=== PATIENT | male | born 1945 | race Caucasian/White ===

== ENCOUNTER 2025-09-04 18:35 | Inpatient (IN) | payer OTHER ==
[2025-09-04] VITALS (25 sets, daily range): BP systolic 51–123; BP diastolic 37–77
[~2025-09-04] VITALS: Ht 182.9 cm; Wt 108.0 kg
[2025-09-04] MEDS ORDERED: Lidocaine 2000 MG Premix 250 ML IV SCH (18:45)
[2025-09-04 18:52] LABS: Hematocrit 46.5 % (37.0-53.0); Hemoglobin 14.5 g/dL (13.5-17.5); Mean Corpuscular HGB Conc 31.2 g/dL (31.5-36.5); Mean Corpuscular Volume 104 fL (80-100); NRBC ABSOLUTE 0.04 K/mm3 (0.00-0.02); NRBC Auto 0.4 /100 WBC (0.0-0.2); Platelet Count 144 K/mm3 (150-400); RDW Coefficient Variation 13.2 % (11.7-14.2); RDW Standard Deviation 50.5 fL (35.1-46.3)
[2025-09-04] MEDS ORDERED: CefTRIAXone Sodium 1,000 MG in NS 50 ML IV ONE (19:10)
[2025-09-04 19:12] LABS: BAND PERCENT MAN 1 % (0-8); BASOPHILS ABSOLUTE MAN 0.09 K/mm3 (0.00-0.23); BASOPHILS PERCENT MAN 1 % (0-2); EOSINOPHILS ABSOLUTE MAN 0.27 K/mm3 (0.00-0.68); EOSINOPHILS PERCENT MAN 3 % (0-6); LYMPHOCYTES ABSOLUTE MAN 4.59 K/mm3 (0.84-5.20); LYMPHOCYTES PERCENT MAN 51 % (21-46); METAMYELOCYTE ABSOLUTE MAN 0.18 K/mm3 (0.00-0.00); METAMYELOCYTE PERCENT MAN 2 % (0-0); MONOCYTES ABSOLUTE MAN 0.27 K/mm3 (0.16-1.47); MONOCYTES PERCENT MAN 3 % (4-13); MYELOCYTE ABSOLUTE MAN 0.36 K/mm3 (0.00-0.00); MYELOCYTE PERCENT MAN 4 % (0-0); NEUTROPHILS ABSOLUTE MAN 3.24 K/mm3 (1.96-9.15); SEG NEUTROPHILS PERCENT MAN 35 % (41-73)
[2025-09-04 19:18] LABS: Alanine Aminotransfer (ALT/SGP 162.0 U/L (12-78); Albumin, Blood 3.3 g/dL (3.4-5.0); Albumin/Globulin Ratio 1.0 (0.8-1.8); Anion Gap 20.0 mmol/L (3-11); Aspartate Aminotrans (AST/SGOT 218.0 U/L (12-37); Bilirubin, Total 0.4 mg/dL (0.1-1.0); Blood Urea Nitrogen 19.0 mg/dL (8-24); CO2, Blood 19.0 mmol/L (21-32); Calcium, Blood 9.0 mg/dL (8.5-10.1); Chloride, Blood 106.0 mmol/L (98-108); Creatinine, Blood 1.28 mg/dL (0.60-1.20); Globulin, Blood 3.3 g/dL (2.2-4.0); Glucose, Blood 401.0 mg/dL (70-99); Potassium, Blood 3.5 mmol/L (3.5-5.5); Sodium, Blood 141.0 mmol/L (136-145); Total Protein, Blood 6.6 g/dL (6.4-8.2)
[2025-09-04] MEDS ORDERED: Insulin Human Lispro 100 Units/ML 3ML Syringe SC SCH (20:00)
[2025-09-04 20:19] LABS: Prothrombin Time Results 12.2 Sec (9.7-11.5)
[2025-09-04 20:36] LABS: Hematocrit 44.8 % (37.0-53.0); Hemoglobin 14.5 g/dL (13.5-17.5)
[2025-09-04 20:38] LABS: Source, Urine Foley catheter
[2025-09-04 20:41] LABS: Bilirubin, Urine Neg (Neg); Color, Urine Yellow (P-Yellow); Glucose Qualitative, Urine 2+ (Neg); Ketones, Urine Neg (Neg); Leukocyte Esterase, Urine Neg (Neg); Protein, Urine 4+ (Neg); Specific Gravity, Urine 1.025 (1.003-1.022); Urobilinogen, Urine NORM (Normal)
[2025-09-04] MEDS ORDERED: NS 2,000 ML IV ONE ×3 (20:51→21:00)
[2025-09-04 20:52] LABS: Red Blood Cells, Urine 25-50 /hpf (0-2)
[2025-09-04 21:05] LABS: Magnesium, Blood 5.3 mg/dL (1.6-2.4)
[2025-09-04] MEDS ORDERED: FLU VACC TS2025(65UP)/MF59C/PF 45 MCG/0.5 ML SYRINGE IM SCH (21:05)
[2025-09-04] MEDS ORDERED: NS 1,000 ML IV SCH (21:05)
[2025-09-04] MEDS ORDERED: Cetylpyridinium Chloride 1 EA MISC MT SCH (21:05)
[2025-09-04] MEDS ORDERED: Ondansetron HCl 2 MG / ML 2ML Vial IV PRN (21:05)
[2025-09-04] MEDS ORDERED: LORazepam 2 MG/ML 1ML Injection ONE (21:08)
[2025-09-04] MEDS ORDERED: LORazepam 2 MG/ML 1ML Injection IV ONE (22:00)
[2025-09-04 23:49] LABS: pH Blood Venous 7.14 (7.34-7.37)
[2025-09-05] VITALS (91 sets, daily range): BP systolic 76–165; BP diastolic 53–115
[2025-09-05] MEDS ORDERED: Hydrogen Peroxide 1.5 % Solution MT SCH
[2025-09-05] MEDS ORDERED: Piperacillin/Tazobactam Sod 3.375 GM in NS 100 ML IV SCH
[2025-09-05 01:23] LABS: pH Blood Venous 7.18 (7.34-7.37)
[2025-09-05 01:25] LABS: BASOPHILS ABSOLUTE AUTO 0.09 K/mm3 (0.00-0.23); BASOPHILS PERCENT AUTO 0 % (0-2); EOSINOPHILS ABSOLUTE AUTO 0.04 K/mm3 (0.00-0.68); EOSINOPHILS PERCENT AUTO 0 % (0-6); Hematocrit 43.2 % (37.0-53.0); Hemoglobin 13.5 g/dL (13.5-17.5); IMMATURE GRAN ABSOLUTE AUTO 0.33 K/mm3 (0.00-0.10); IMMATURE GRAN PERCENT AUTO 2 % (0-1); LYMPHOCYTES ABSOLUTE AUTO 0.76 K/mm3 (0.84-5.20); LYMPHOCYTES PERCENT AUTO 3 % (21-46); MONOCYTES ABSOLUTE AUTO 1.32 K/mm3 (0.16-1.47); MONOCYTES PERCENT AUTO 6 % (4-13); Mean Corpuscular HGB Conc 31.3 g/dL (31.5-36.5); Mean Corpuscular Volume 102 fL (80-100); NEUTROPHILS ABSOLUTE AUTO 19.60 K/mm3 (1.96-9.15); NEUTROPHILS PERCENT AUTO 89 % (41-73); NRBC ABSOLUTE 0.02 K/mm3 (0.00-0.02); NRBC Auto 0.1 /100 WBC (0.0-0.2); Platelet Count 173 K/mm3 (150-400); RDW Coefficient Variation 13.4 % (11.7-14.2); RDW Standard Deviation 50.1 fL (35.1-46.3)
[2025-09-05 01:54] LABS: Alanine Aminotransfer (ALT/SGP 170.0 U/L (12-78); Albumin, Blood 3.1 g/dL (3.4-5.0); Albumin/Globulin Ratio 1.1 (0.8-1.8); Anion Gap 17.0 mmol/L (3-11); Aspartate Aminotrans (AST/SGOT 333.0 U/L (12-37); Bilirubin, Total 0.5 mg/dL (0.1-1.0); Blood Urea Nitrogen 20.0 mg/dL (8-24); CO2, Blood 16.0 mmol/L (21-32); Calcium, Blood 7.7 mg/dL (8.5-10.1); Chloride, Blood 116.0 mmol/L (98-108); Creatinine, Blood 1.67 mg/dL (0.60-1.20); Globulin, Blood 2.8 g/dL (2.2-4.0); Glucose, Blood 185.0 mg/dL (70-99); Magnesium, Blood 3.2 mg/dL (1.6-2.4); Potassium, Blood 3.9 mmol/L (3.5-5.5); Sodium, Blood 145.0 mmol/L (136-145); Total Protein, Blood 5.9 g/dL (6.4-8.2)
[2025-09-05] MEDS ORDERED: Sodium Bicarb 8.4% 1 MEQ/ML 50 ML Vial IV ONE (02:10)
[2025-09-05] MEDS ORDERED: Sodium Bicarb 8.4% Inj 100 MEQ in Sodium Chloride 0.45% 1,000 ML IV SCH (02:10)
[2025-09-05] MEDS ORDERED: Pantoprazole Sodium 40 MG Injection IV SCH (06:00)
--- NOTE | 2025-09-05 06:28 | NUR ---
SHIFT SUMMARY RECEIVED PT FROM ED AT 2124 LAST NIGHT. ON VENTILATOR AND SEDATED. NOT OPENING EYES OR FOLLOWING COMMANDS, WITHDRAWS TO PAIN. LIDOCAINE GTT, KCL, FENTANYL GTTS INFUSING (SEE FLOWSHEET). LARGE INCONT STOOL ON ARRIVAL, BROWNISH/YELLOW WITH SOME RED STREAKS NOTED. SM AMT OF SANGUINOUS FROM ETT NOTED, WELL. PROVIDER AWARE. BLOOD PRESSURE DROPPED AFTER PROPOFOL STARTED AND IT WAS TURNED OFF, PROVIDER BURT UPDATED WHEN BP DIDN'T COME BACK UP. ORDERS RECEIVED, PHENYLEPHRINE INITIATED TO KEEP MAP >65, CURRENTLY AT 80 (SEE FLOWSHEET). LOW DOSE PROPOFOL RESTARTED WHEN BP BACK UP AFTER PT GETTING RESTLESS. FENTANYL GTT ALSO ON AND OFF T/O NIGHT, CURRENTLY OFF. DR MONTEMAYOR UPDATED WITH LABS THIS AM AND ORDERS RECEIVED FOR BICARB BOLUS, GTT AND REPEAT LABS. FEBRILE THIS AM 99.6, BUT OTHER VS HAVE REMAINED STABLE THIS AM. WILL UPDATE DAY RN WITH ALL OUTSTANDING ISSUES AND PROBLEMS TO DATE.
[2025-09-05 09:45] LABS: pH Blood Venous 7.28 (7.34-7.37)
[2025-09-05 10:23] LABS: Anion Gap 16.0 mmol/L (3-11); Blood Urea Nitrogen 24.0 mg/dL (8-24); CO2, Blood 19.0 mmol/L (21-32); Calcium, Blood 8.1 mg/dL (8.5-10.1); Chloride, Blood 115.0 mmol/L (98-108); Creatinine, Blood 2.17 mg/dL (0.60-1.20); Glucose, Blood 154.0 mg/dL (70-99); Potassium, Blood 4.3 mmol/L (3.5-5.5); Sodium, Blood 146.0 mmol/L (136-145)
--- NOTE | 2025-09-05 10:56 | NUR ---
MET WITH PT'S AND HIS SON IN LAW. SHELBY WAS TEARFUL, INTRODUCED MYSELF TO BOTH, AND THEY EXPRESSED WISHES TO "GIVE PATIENT SOME TIME TO SEE IF HE'LL COME OUT OF THIS." WE FURTHER DISCUSSED, AND PT'S SHELBY IS AGREEABLE TO CHANGE PT'S CODE STATUS TO DNR ONCE SHE V/U TO WHAT THE CHANGE IN STATUS ENTAILED. RECEIVED ORDER FROM DR. CORTES FOR DNR. PLAN TO CONTINUE TO OFFER SUPPORT TO THE FAMILY NEEDED.
[2025-09-05] MEDS ORDERED: Docusate Sodium Liquid 100 MG UDC PT PRN (11:55)
[2025-09-05 15:55] LABS: Anion Gap 13.0 mmol/L (3-11); Blood Urea Nitrogen 27.0 mg/dL (8-24); CO2, Blood 21.0 mmol/L (21-32); Calcium, Blood 7.9 mg/dL (8.5-10.1); Chloride, Blood 116.0 mmol/L (98-108); Creatinine, Blood 2.45 mg/dL (0.60-1.20); Glucose, Blood 132.0 mg/dL (70-99); Potassium, Blood 4.2 mmol/L (3.5-5.5); Sodium, Blood 146.0 mmol/L (136-145)
[2025-09-05] MEDS ORDERED: Dose Adjust by Pharmacy XX STA ×2 (16:16→23:55)
[2025-09-05] MEDS ORDERED: Heparin Sodium 5000 Units/ML 1ML MDV IV ONE (16:20)
[2025-09-05] MEDS ORDERED: Heparin Sodium,Porcine/0.5 NS 500 ML IV SCH (16:20)
[2025-09-05] MEDS ORDERED: FentaNYL Citrate 50 MCG/ML 2 ML Injection IV PRN (16:25)
--- NOTE | 2025-09-05 17:49 | NUR ---
SUMMARY PT INTUBATED, SEDATED WITH PROPOFOL. WITHDRAWS FROM NOXIOUS STIMULUS. PUPILS EQUAL AND REACTIVE. DURING SEDATION VACATION PT HAD JERKING MOTIONS THAT WAS WITNESSED BY DR. FARIA. ONCE PROPOFOL WAS RESTARTED THEY SUBSIDE. ON PHENYLEPHERINE GTT FOR BP SUPPORT AND LIDOCAINE GTT AT SET RATE. HEPARIN GTT STARTED THIS EVENING PER PHARMACY. TUBE FEEDING STARTED WELL. EXTERNAL COOLING FOR TEMP CONTROL. FAMILY AT BEDSIDE THIS AFTERNOON.
[2025-09-05] MEDS ORDERED: Cetylpyridinium Chloride 1 EA MISC MT SCH (20:00)
[2025-09-05] MEDS ORDERED: Acetaminophen 160MG / 5ML 10.15 UDC PT PRN (20:40)
--- NOTE | 2025-09-05 20:43 | NUR ---
ASSUMED CARE AT 1900 PATIENT IS INTUBATED AND SEDATED ON PROPOFOL, FENTANYL PRN. COUGH AND GAG AT TIMES, PUPILS EQUAL AND REACTIVE, WITHDRAWS TO PAIN. NO PURPOSEFUL MOVEMENT AT THIS TIME. SP02 92% ON VENT AC VC 24/500/8/30%, RR 24, LS CLEAR TO DIMINISHED. SPUTUM SAMPLE SENT. HR SR 70 WITH BBB, LIDOCAINE REMAINS INFUSING PER EMAR AT SET RATE. PHENYLEPHRINE INFUSINING TO MAINTAIN MAP >65. OG WITH VITAL HP INFUSING, WILL INCREASE PER ORDERS TO GOAL RATE, 100 MLS FLUSHES Q4 HOURS. TEMP BOWLES PATENT AND DRAINING JOHN GRAVITY. TEMP CURRENTLY 99.6, COOLING BLANKET IN PLACE, WILL MEDICATE WITH TYLENOL PER EMAR. ORAL CARE DONE AND PATIENT REPOSITONED. SEE SHIFT ASSESSMENT FOR MORE INFORMATION.
[2025-09-05 23:23] LABS: U Cannabinoids Screen DETECTED; U Methamphetamine Screen DETECTED
[2025-09-05 23:24] LABS: U Amphetamine Screen Not Detected; U Barbiturate Screen Not Detected; U Benzodiazapine Screen DETECTED; U Buprenorphine Screen Not Detected; U Cocaine Screen Not Detected; U Methadone Screen Not Detected; U Opiates Screen Not Detected; U Oxycodone Screen Not Detected; U Phencyclidine Screen Not Detected
[2025-09-06] VITALS (100 sets, daily range): BP systolic 98–203; BP diastolic 51–107
[2025-09-06] MEDS ORDERED: Insulin Human Lispro 100 Units/ML 3ML Syringe SC SCH
[2025-09-06 06:00] LABS: BASOPHILS ABSOLUTE AUTO 0.02 K/mm3 (0.00-0.23); BASOPHILS PERCENT AUTO 0 % (0-2); EOSINOPHILS ABSOLUTE AUTO 0.06 K/mm3 (0.00-0.68); EOSINOPHILS PERCENT AUTO 0 % (0-6); Hematocrit 35.9 % (37.0-53.0); Hemoglobin 11.8 g/dL (13.5-17.5); IMMATURE GRAN ABSOLUTE AUTO 0.09 K/mm3 (0.00-0.10); IMMATURE GRAN PERCENT AUTO 1 % (0-1); LYMPHOCYTES ABSOLUTE AUTO 1.39 K/mm3 (0.84-5.20); LYMPHOCYTES PERCENT AUTO 10 % (21-46); MONOCYTES ABSOLUTE AUTO 0.78 K/mm3 (0.16-1.47); MONOCYTES PERCENT AUTO 5 % (4-13); Mean Corpuscular HGB Conc 32.9 g/dL (31.5-36.5); NEUTROPHILS ABSOLUTE AUTO 12.30 K/mm3 (1.96-9.15); NEUTROPHILS PERCENT AUTO 84 % (41-73); NRBC ABSOLUTE 0.00 K/mm3 (0.00-0.02); NRBC Auto 0.0 /100 WBC (0.0-0.2); Platelet Count 125 K/mm3 (150-400); RDW Coefficient Variation 14.0 % (11.7-14.2); RDW Standard Deviation 49.5 fL (35.1-46.3)
--- NOTE | 2025-09-06 06:02 | NUR ---
SHIFT SUMMARY PATIENT REMAINS INTUBATED AND SEDATED ON PROPOFOL, PRN FENTANYL PER EMAR. PATIENT CONTINUES TO HAVE COUGH GAG AND REACTIVE PUPILS, WITHDRAWS FROM PAIN. NO PURPOSEFUL MOVEMENT. HR SR 70S WITH BBB, REMAINS ON LIDOCAINE DRIP. TITRATING PHENYLEPHRINE DOWN. OG WITH VITAL HP AT GOAL. PATIENT HAVING SEVERAL LARGE LIQUID MUCOUS BROWN STOOLS, WILL PLACE RECTAL TUBE. TEMP BOWLES PATENT AND DRAINING TO GRAVITY, URINE OUTPUT DECREASING, SOME SEDIMENT. COOLING BLANKET ON MOST THE SHIFT, TEMP CURRENTLY 99.4. BED BATH DONE THIS SHIFT, REPOSITONED Q2 HOURS. PICC LINE DRESSING CHANGED
[2025-09-06 06:20] LABS: Alanine Aminotransfer (ALT/SGP 98.0 U/L (12-78); Albumin, Blood 2.7 g/dL (3.4-5.0); Albumin/Globulin Ratio 0.9 (0.8-1.8); Anion Gap 11.0 mmol/L (3-11); Aspartate Aminotrans (AST/SGOT 97.0 U/L (12-37); Bilirubin, Direct 0.2 mg/dL (0.0-0.3); Bilirubin, Indirect 0.3 mg/dL (0.1-0.7); Bilirubin, Total 0.5 mg/dL (0.1-1.0); Blood Urea Nitrogen 36.0 mg/dL (8-24); CO2, Blood 22.0 mmol/L (21-32); Calcium, Blood 7.8 mg/dL (8.5-10.1); Chloride, Blood 117.0 mmol/L (98-108); Creatinine, Blood 2.21 mg/dL (0.60-1.20); Globulin, Blood 3.1 g/dL (2.2-4.0); Glucose, Blood 119.0 mg/dL (70-99); Magnesium, Blood 3.1 mg/dL (1.6-2.4); Potassium, Blood 3.9 mmol/L (3.5-5.5); Sodium, Blood 146.0 mmol/L (136-145); Total Protein, Blood 5.8 g/dL (6.4-8.2)
[2025-09-06 06:25] LABS: Mean Corpuscular Volume 97 fL (80-100)
[2025-09-06] MEDS ORDERED: Dose Adjust by Pharmacy XX STA ×2 (06:44→13:21)
--- NOTE | 2025-09-06 07:15 | NUR ---
ASSUMED CARE OF PATIENT AT APPROXIMATELY 0700. BEDSIDE REPORT RECEIVED FROM MARIANA FARMER. PT INTUBATED AND SEDATED, PROPOFOL INFUSING. CONTINUOUS CARDIAC MONITORING IN PLACE. VENT SETTINGS A/C VC 24/500/8/35%. BOWLES PATENT, RECTAL TUBE PATENT. PHENYLEPHRINE, LIDOCAINE, HEPARIN INFUSING VIA PICC. SEE SHIFT ASSESSMENT FOR FULL DETAILS.
[2025-09-06] MEDS ORDERED: Protein Supplement 30 ML UD PT SCH (09:00)
[2025-09-06 11:31] LABS: Acinetobacter baumannii DNA Not Detected copy/mL (NOT DETECT); Enterobacter cloacae DNA Not Detected copy/mL (NOT DETECT); Escherichia coli DNA Not Detected copy/mL (NOT DETECT); Haemophilus influenzae DNA Not Detected copy/mL (NOT DETECT); Klebsiella aerogenes DNA Not Detected copy/mL (NOT DETECT); Klebsiella oxytoca DNA Not Detected copy/mL (NOT DETECT); Klebsiella pneumoniae DNA Not Detected copy/mL (NOT DETECT); Moraxella catarrhalis DNA Not Detected copy/mL (NOT DETECT); Proteus sp DNA Not Detected copy/mL (NOT DETECT); Pseudomonas aeruginosa DNA Not Detected copy/mL (NOT DETECT); Serratia marcescens DNA Not Detected copy/mL (NOT DETECT); Staphylococcus aureus DNA Not Detected copy/mL (NOT DETECT); Streptococcus agalactiae DNA Not Detected copy/mL (NOT DETECT); Streptococcus pneumoniae DNA Not Detected copy/mL (NOT DETECT)
[2025-09-06 11:32] LABS: Chlamydia pneumonia Not Detected (NOT DETECT); Human Coronavirus RNA Not Detected (NOT DETECT); Human Metapneumovirus RNA Not Detected (NOT DETECT); Influenza virus A RNA Not Detected (NOT DETECT); Influenza virus B RNA Not Detected (NOT DETECT); Respiratory syncytial Vir RNA Not Detected (NOT DETECT); Rhinovirus+Enterovirus RNA Detected (NOT DETECT); Streptococcus pyogenes DNA Not Detected copy/mL (NOT DETECT)
[2025-09-06 13:04] LABS: Platelet Count 111 K/mm3 (150-400)
[2025-09-06] MEDS ORDERED: Tranexamic Acid 1000 MG/10 ML 10ML Vial (SDV) INH SCH (16:00)
--- NOTE | 2025-09-06 17:57 | NUR ---
SHIFT SUMMARY PT REMAINS INTUBATED, HAS BEEN OFF OF SEDATION SINCE APPROXIMATELY 0930 THIS AM. WITHDRAWS FROM NOXIOUS STIMULI, HOWEVER NOT FOLLOWING COMMANDS OR MAKING PURPOSEFUL MOVEMENTS. PRN FENTANYL GIVEN PER EMAR FOR AGITATION c GOOD BENEFIT. TMAX 99.8, COOLING BLANKET APPLIED. CONTINUOUS CARDIAC MONITORING SHOWS SR c BBB. LIDOCAINE INFUSING AT 5 MCG/KG/MIN. PHENYLEPHRINE HAS BEEN ON SB SINCE 1500, BP STABLE c MAP > 65. VENT SETTINGS ARE SPONTANEOUS 14/8 AND 35%. THICK BLOODY ORAL AND INLINE SECRETIONS. DR. FARIA AWARE, TXA INHALATIONS ORDERED, VERBAL TO CONTINUE HEPARIN AT THIS TIME. VITAL HP INFUSING AT GOAL OF 45 ML/HR, 100 mL H20 Q4H FLUSHES. RECTAL TUBE IN PLACE c THIN GREEN LIQUID STOOL OUT. TEMP BOWLES PATENT AND DRAINING TO GRAVITY. R PICC LEAKING, DR. FARIA AWARE. FAMILY AT BEDSIDE T/O SHIFT, UPDATED ON POC. WILL CONTINUE TO MONITOR AND REPORT TO ONCOMING RN.
[2025-09-06 18:53] LABS: Hematocrit 33.3 % (37.0-53.0); Hemoglobin 10.8 g/dL (13.5-17.5); Platelet Count 102 K/mm3 (150-400)
--- NOTE | 2025-09-06 22:11 | NUR ---
ASSUMED CARE @1900 THIS RN ASSUMED CARE OF PT @ 1900. PT INTUBATED ON SPONTANEOUS AND TOLERATING VENT. DOES NOT ARROUSE TO VERBAL STIMULI, NOT OPENING EYES, NO PURPOSEFUL MOVEMENT NOTED. SPO2 >90%. BP STABLE AND WNL HR IN THE 70'S NSR. LIDOCAINE GTT INFUSING, HEPARIN GTT INFUSING. BOWLES CATHETER AND RECTAL TUBE IN PLACE. NO IMMEDIATE CONCERNS AT THIS TIME.
[2025-09-06] MEDS ORDERED: Albuterol 2.5 MG/3 ML VIAL INH PRN (22:30)
[2025-09-06] MEDS ORDERED: Ipratropium/Albuterol SulF 2.5-0.5MG/3 ML Amp INH SCH (22:30)
--- NOTE | 2025-09-06 22:31 | NUR ---
SEDATION RESTART PROPOFOL RESTARTED @ 15MCG. PT EXPERIENCING CONTINUING AGITATION, BP INCREASING, AND NOT TOLERATING VENT, WORK OF BREATHING INCREASING. 2X DOSES OF 50MCG OF FENTANYL GIVEN WITHOUT RELIEF BEFORE STARTING SEDATION AGAIN.
[2025-09-07] VITALS (52 sets, daily range): BP systolic 97–175; BP diastolic 49–108
[2025-09-07 03:59] LABS: Hematocrit 30.3 % (37.0-53.0); Hemoglobin 10.0 g/dL (13.5-17.5); Mean Corpuscular HGB Conc 33.0 g/dL (31.5-36.5); Mean Corpuscular Volume 100 fL (80-100); NRBC ABSOLUTE 0.00 K/mm3 (0.00-0.02); NRBC Auto 0.0 /100 WBC (0.0-0.2); Platelet Count 94 K/mm3 (150-400); RDW Coefficient Variation 14.0 % (11.7-14.2); RDW Standard Deviation 50.6 fL (35.1-46.3)
[2025-09-07 04:17] LABS: Anion Gap 9.0 mmol/L (3-11); Blood Urea Nitrogen 34.0 mg/dL (8-24); CO2, Blood 24.0 mmol/L (21-32); Calcium, Blood 7.4 mg/dL (8.5-10.1); Chloride, Blood 113.0 mmol/L (98-108); Creatinine, Blood 1.66 mg/dL (0.60-1.20); Glucose, Blood 196.0 mg/dL (70-99); Magnesium, Blood 2.6 mg/dL (1.6-2.4); Potassium, Blood 3.6 mmol/L (3.5-5.5); Sodium, Blood 142.0 mmol/L (136-145)
--- NOTE | 2025-09-07 05:54 | NUR ---
SHIFT SUMMARY PT REMAINS INTUBATED WITH SEDATION RESUMED; PROPOFOL GTT @ 25MCG/KG/MIN DUE TO INCREASING AGITATION, INCREASED WORK OF BREATHING AND INABILITY TO KEEP AGITATION AT BAY WITH PRN FENTANYL ONLY. PT MOVED FROM SPONTANEOUS MODE TO AC/VC DUE TO WORK OF BREATHING, FREQUENT COUGHING/ FIGHTING OF VENTILATOR. PT REMAINS UNABLE TO FOLLOW COMMANDS, NO PURPOSEFUL MOVEMENT NOTED, DOES NOT OPEN EYES, AND UNARROSUSBALE TO ANYTHING OTHER THAN PAINFUL STIMULI. PT HAS REMAINED FEBRILE T/O THE NIGHT WITH A TMAX OF 99.8 DESPITE PRN TYLENOL AND COOLING BLANKET. SPO2 >90 T/O THE NIGHT WITH MODERATE AMOUNTS BLOODY CLOTS SUCTIONED FROM ETT FREQUENTLY. SBP IN THE 110'S-130'S AND HR IN THE 70'S NSR. BOWLES CATHETER AND RECTAL TUBE REMAIN IN PLACE, PATENT, AND DRAINING TO GRAVITY. TUBE FEED INFUSING CONTINOUSLY @ 45ML/HR. LIDOCAINE GTT CONTINUES TO INFUSE @ 2MG. BED BATH AND GOWN CHANGE TONIGHT. PT TO CT THIS AM. NO IMMEDIATE CONCERNS AT THIS TIME. WILL REPORT TO DAYSAKFT NURSE.
--- NOTE | 2025-09-07 07:21 | NUR ---
ASSUMED CARE THIS RN ASSUMED CARE AT 0700 WITH PRECEPTOR MARIANA REEVES. PATIENT IS RESTING WITH EYES CLOSED DURING BSSR. HE DOES NOT RESPOND TO VERBAL STIMULI. HE IS ON AC/VC 24/500/5/70%. HIS SPO2 IS >96. BREATHING IS EVEN AND UNLABORED. PT HAS PROPOFOL @ 25MCG/KG/MIN, RASS -2. LIDOCAIN @ 2MG/MIN WITH HR 80-90SM SYSTOLIC BP >120, AND MAP >65. HE HAS TF @ GOAL OF 45ML/HR WITH 100ML FREE WATER Q4. RECTAL TUBE AND BOWLES CATHETER DRAINING TO GRAVITY.
--- NOTE | 2025-09-07 11:23 | NUR ---
PALLIATIVE CARE CASE CONFERENCE: ROUNDED ON PT AND SPOKE TO PRIMARY RN AND DR. HARLEY. ACCORDING TO DR. HARLEY MRI SHOWS WORSENING ANOXIC BRAIN INJURY. DR. WEST TO HAVE CONVERSATION WITH FAMILY WHEN THEY COME IN TO FURTHER DISCUSS CONCERNS AND GOC. ADVISED PRIMARY RN WILL BE AVAILABLE FOR MEETING WITH FAMILY AND TO CALL WHEN THEY GET HERE.
--- NOTE | 2025-09-07 13:47 | NUR ---
PALLIATIVE CARE VISIT: MET WITH ZELDA AND SPOUSE SHELBY TODAY AT 1250. DAUGHTER WAS MADE SPOKESPERSON BY SPOUSE SHELBY. FAMILY WOULD LIKE TO MOVE FORWARD WITH LIBERATING PT FROM VENTILATOR ONCE ALL FAMILY HAVE ARRIVED. THEY SHOULD ALL BE HERE IN THE NEXT 2 HOURS. THEY WOULD ALSO LIKE LAST RITES READ PRIOR TO LIBERATION OF VENT. THEY ARE AGREEABLE TO DOMESTIC CLEANER TO READ LAST RITES. ANSWERED QUESTIONS ABOUT HOW COMFORT CARE AND LIBERATION IS COMPLETED. THEY REQUEST ME TO BE AVAILABLE TO ANSWER OTHER FAMILY MEMBERS QUESTIONS WHICH OF COURSE I WILL BE. WILL CALL FOR COMFORT CARE ORDERS ONCE LAST RITES AND ALL FAMILY MEMBERS ARE PRESENT.
[2025-09-07] MEDS ORDERED: Morphine Sulfate 20 MG/1ML 1 ML Oral Syringe SL PRN (16:45)
[2025-09-07] MEDS ORDERED: Atropine Sulfate 1% Opth Soln 2ML BTL SL PRN (16:45)
[2025-09-07] MEDS ORDERED: Haloperidol Lactate Inj. 5 MG/ML Injection IV PRN (16:45)
[2025-09-07] MEDS ORDERED: Morphine Sulfate 10 MG/ML 1MLSYR IV PRN (16:45)
[2025-09-07] MEDS ORDERED: LORazepam 2 MG/ML 1ML Injection IV PRN (16:50)
--- NOTE | 2025-09-07 16:54 | NUR ---
PALLIATIVE CARE VISIT: EXPLOSIVE OPERATOR WAS AVAILABLE TO COME AND READ LAST RITES. ALL FAMILY PRESENT AND ALLOWED TIME WITH PT. FAMILY INDICATED THEY WERE READY FOR PT TO BE LIBERATED. ORDER TO PLACE COMFORT CARE ORDERS AND LIBERATE FROM VENT OBTAINED FROM DR. HARLEY. DISCUSSED MEDICATIONS NEEDED TO LIBERATE PT WITH BEST COMFORT OUTCOME WITH PRIMARY RN. DUE TO PT ON HIGH DOSE OF IV FENTANYL AND RECEIVING APPROX Q2 HOURS PLACED ORDERS FOR IV MORPHINE 1-5 MG Q30 MINUTES PRN AND IV LORAZEPAM 1-4 MG Q2 HOURS PRN. ALL OTHER SUPPORTIVE COMFORT CARE MEDICATIONS ORDERED IN ADDITION.
--- NOTE | 2025-09-07 18:51 | NUR ---
COMFORT CARE/TIME OF PT TRANSITIONED TO COMFORT CARE WITH MULTIPLE FAMILY MEMBERS AT BEDSIDE. PT EXTUBATED AT 1707. PT MEDICATED PER EMAR FOR COMFORT AND AIR HUNGER. TIME OF 1838. PT'S DAUGHTER REPORTS SHE WILL RELAY INFORMATION TO PT'S SHELBY. FAMILY DESIGNATES CARE CREMATION.
== END 2025-09-07 18:38 ==
LOC: EDBD 18:35 → ER 18:35 → ICUE 19:43
PROVIDERS: Emergency Medicine; Internal Medicine Critical Care Medicine; Nurse Practitioner Acute Care; Student in an Organized Health Care Education/Training Program; ADMIT Internal Medicine
PROC: 0T9B70Z Drainage of Bladder with Drainage Device, Via Natural or Artificial Opening (ICD-10-PCS; principal; 2025-09-04)
PROC: 0BH17EZ Insertion of Endotracheal Airway into Trachea, Via Natural or Artificial Opening (ICD-10-PCS; 2025-09-04)
PROC: 5A1935Z Respiratory Ventilation, Less than 24 Consecutive Hours (ICD-10-PCS; 2025-09-04)
PROC: 3E033XZ Introduction of Vasopressor into Peripheral Vein, Percutaneous Approach (ICD-10-PCS; 2025-09-04)
PROC: 3E02340 Introduction of Influenza Vaccine into Muscle, Percutaneous Approach (ICD-10-PCS; 2025-09-04)
PROC: 3E03329 Introduction of Other Anti-infective into Peripheral Vein, Percutaneous Approach (ICD-10-PCS; 2025-09-05)
PROC: 02HV33Z Insertion of Infusion Device into Superior Vena Cava, Percutaneous Approach (ICD-10-PCS; 2025-09-06)
PROC: B5181ZA Fluoroscopy of Superior Vena Cava using Low Osmolar Contrast, Guidance (ICD-10-PCS; 2025-09-06)
DX: I49.01 Ventricular fibrillation (principal); I50.21 Acute systolic (congestive) heart failure; I21.4 Non-ST elevation (NSTEMI) myocardial infarction; J18.9 Pneumonia, unspecified organism; J96.01 Acute respiratory failure with hypoxia; J69.0 Pneumonitis due to inhalation of food and vomit; N17.9 Acute kidney failure, unspecified; N39.0 Urinary tract infection, site not specified; E87.21 Acute metabolic acidosis; E87.4 Mixed disorder of acid-base balance; K92.1 Melena; G93.1 Anoxic brain damage, not elsewhere classified; Z78.1 Physical restraint status; Z51.5 Encounter for palliative care; Z66 Do not resuscitate; I44.7 Left bundle-branch block, unspecified; I46.2 Cardiac arrest due to underlying cardiac condition; I95.9 Hypotension, unspecified; I25.10 Atherosclerotic heart disease of native coronary artery without angina pectoris; I47.20 Ventricular tachycardia, unspecified; R73.9 Hyperglycemia, unspecified; R56.9 Unspecified convulsions; F10.20 Alcohol dependence, uncomplicated; E83.41 Hypermagnesemia; D69.6 Thrombocytopenia, unspecified; R74.01 Elevation of levels of liver transaminase levels; I11.0 Hypertensive heart disease with heart failure; Z23 Encounter for immunization; Z95.1 Presence of aortocoronary bypass graft; Z85.46 Personal history of malignant neoplasm of prostate; Z90.79 Acquired absence of other genital organ(s); Z79.899 Other long term (current) drug therapy; Z98.890 Other specified postprocedural states
CPT/HCPCS: 0528U; 31500; 31720; 36415; 36569; 51702; 70450; 71045; 76770; 80048; 80053; 80076; 81001; 82010; 82550; 82803; 82947; 83036; 83605; 83735; 83880; 84145; 84484; 85014; 85018; 85025; 85027; 85049; 85520; 85610; 85730; 87040; 87070; 87086; 87106; 87205; 87449; 92950; 93005; 93010; 94002; 94003; 94640; 94664; 94762; 96365; 99291-25; A9270; C8929; J0696; J1644; J2003; J2060; J2270; J2371; J2470; J2543; J2704; J3010; J3411; J3480; J7030; J7050; Q9957